=== PATIENT | female | born 1925 | race Caucasian/White ===

== ENCOUNTER 2016-10-19 13:03 | Emergency (ER) | payer MEDICARE ==
[2016-10-19 14:44] VITALS: BP 163/79
--- NOTE | 2016-10-19 15:18 | UC ---
Respiratory Complaint HPI - HPI Summary HPI Summary: pt c/o cough, nasal congestion X 10 days. - History of Current Complaint Chief Complaint: UCRespiratory Stated Complaint: CONGESTION Time Seen by Provider: 10/19/16 15:09 Hx Obtained From: Patient ?: No Onset/Duration: Sudden Onset, Lasting Days - 10 days Timing: Constant Severity Initially: Mild Severity Currently: Mild Character: Cough: Nonproductive Aggravating Factors: Deep Breaths, Recumbent Position Alleviating Factors: Nothing Associated Signs And Symptoms: Positive: URI, Nasal Congestion - Risk Factors Pulmonary Embolism Risk Factors: Recent Travel Cardiac Risk Factors: Hypertension Pseudomonas Risk Factors: Negative Tuberculosis Risk Factors: Negative - Allergies/Home Medications Allergies/Adverse Reactions: Allergies Allergy/AdvReac Type Severity Reaction Status Date / Time No Known Allergies Allergy Verified 10/19/16 14:36 Home Medications: Home Medications Aspirin [Aspirin Adult Low Dose] 81 mg PO DAILY 10/19/16 [History Confirmed 09/23] PMH/Surg Hx/FS Hx/Imm Hx Previously Healthy: Yes Cardiovascular History Of: 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 2006 right knee replaced - Family History Known Family History: Positive: Cardiac Disease - Social History Lives: With Family Alcohol Use: Daily Alcohol Amount: wine daily Substance Use Type: None Smoking Status (MU): Never Smoked Tobacco - Immunization History Most Recent Influenza Vaccination: 2015 Most Recent Tetanus Shot: 06/2012 Review of Systems Constitutional: Fatigue Skin: Negative Eyes: Negative ENT: Negative Respiratory: Cough Cardiovascular: Negative Gastrointestinal: Negative Genitourinary: Negative Motor: Negative Neurovascular: Negative Musculoskeletal: Negative Neurological: Negative Psychological: Negative All Other Systems Reviewed And Are Negative: Yes Physical Exam Triage Information Reviewed: Yes Appearance: Well-Appearing Vital Signs: Initial Vital Signs Temp 97.6 F 10/19/16 14:40 Pulse 67 10/19/16 14:40 Resp 20 10/19/16 14:40 BP 163/79 10/19/16 14:40 Pulse Ox 100 10/19/16 14:40 Vital Signs Reviewed: Yes ENT Exam: Other ENT: Positive: Nasal congestion Neck exam: Normal Respiratory Exam: Normal Cardiovascular Exam: Normal Musculoskeletal Exam: Normal Neurological Exam: Normal Psychological Exam: Normal Skin Exam: Normal UC Diagnostic Evaluation - Laboratory O2 Sat by Pulse Oximetry: 100 Respiratory Course/Dx - Differential Dx/Diagnosis Differential Diagnosis/HQI/PQRI: Bronchitis, Sinusitis Provider Diagnoses: Bronchitis Discharge - Discharge Plan Condition: Stable Disposition: HOME Prescriptions: Amoxicillin CAP* 500 mg PO Q12H #14 cap Benzonatate CAP* [Tessalon CAP*] 100 mg PO TID PRN #21 cap PRN Reason: Cough Patient Education Materials: Acute Bronchitis (ED) Referrals: Kirby Arauz MD [Primary Care Provider] -
== END 2016-10-19 15:25 | disposition home or self-care (01) ==
LOC: UCCORT 13:03
DX: J40 Bronchitis, not specified as acute or chronic (principal)
CPT/HCPCS: 99212; G0463

== ENCOUNTER 2017-02-03 12:14 | Emergency (ER) | payer MEDICARE ==
[2017-02-03 13:29] VITALS: BP 144/79
--- NOTE | 2017-02-03 14:36 | UC ---
Respiratory Complaint HPI - HPI Summary HPI Summary: pt c/o of cough that is worse at night and began 3 days ago. Pt denies fever, chills of SOB. - History of Current Complaint Chief Complaint: UCGeneralIllness Stated Complaint: COUGH Time Seen by Provider: 02/03/17 14:15 Hx Obtained From: Patient ?: No Onset/Duration: Sudden Onset, Lasting Days Timing: Constant Severity Initially: Mild Severity Currently: Mild Character: Cough: Nonproductive Aggravating Factors: Recumbent Position Associated Signs And Symptoms: Positive: Nasal Congestion - Risk Factors Pulmonary Embolism Risk Factors: Negative - Allergies/Home Medications Allergies/Adverse Reactions: Allergies Allergy/AdvReac Type Severity Reaction Status Date / Time No Known Allergies Allergy Verified 02/03/17 13:30 Home Medications: Home Medications Krill Oil [[place]-3 Krill Oil 500 mg] 1 cap PO DAILY 02/03/17 [History Confirmed 02/03/17] PMH/Surg Hx/FS Hx/Imm Hx Previously Healthy: Yes Cardiovascular History Of: 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 2006 right knee replaced. 1973-hysterectomy - Family History Known Family History: Positive: Cardiac Disease - Social History Alcohol Use: Daily Alcohol Amount: wine daily Substance Use Type: None Smoking Status (MU): Never Smoked Tobacco - Immunization History Most Recent Influenza Vaccination: 2015 Most Recent Tetanus Shot: 06/2012 Review of Systems Constitutional: Negative Skin: Negative Eyes: Negative ENT: Other - PND, nasal congestion Respiratory: Cough Cardiovascular: Negative Gastrointestinal: Negative Genitourinary: Negative Motor: Negative Neurovascular: Negative Musculoskeletal: Negative Neurological: Negative Psychological: Negative All Other Systems Reviewed And Are Negative: Yes Physical Exam Triage Information Reviewed: Yes Appearance: Well-Appearing Vital Signs: Initial Vital Signs Temp 98.2 F 02/03/17 13:20 Pulse 78 02/03/17 13:20 Resp 24 02/03/17 13:20 BP 144/79 02/03/17 13:20 Pulse Ox 97 02/03/17 13:20 Eye Exam: Normal ENT Exam: Other - pt has hearing aids in, denies ear pain. ENT: Positive: Pharynx normal, Nasal congestion Neck exam: Normal Respiratory Exam: Normal Cardiovascular Exam: Normal Musculoskeletal Exam: Normal Neurological Exam: Normal Psychological Exam: Normal Skin Exam: Normal Diagnostic Evaluation - Laboratory O2 Sat by Pulse Oximetry: 97 Respiratory Course/Dx - Differential Dx/Diagnosis Differential Diagnosis/HQI/PQRI: Influenza, Other - URI Provider Diagnoses: allergic rhinitis. cough Discharge - Discharge Plan Condition: Stable Disposition: HOME Prescriptions: Loratadine [Claritin 10 MG CAP] 10 mg PO DAILY #15 cap Patient Education Materials: Allergic Rhinitis (ED), Acute Cough (ED) Referrals: Kirby Arauz MD [Primary Care Provider] - If Needed Additional Instructions: Please follow up with your PCP or return to clinic as needed.
== END 2017-02-03 14:55 | disposition home or self-care (01) ==
LOC: UCCORT 12:14
DX: J30.9 Allergic rhinitis, unspecified (principal); R05 Cough; I20.1 Angina pectoris with documented spasm; Z96.651 Presence of right artificial knee joint; Z90.710 Acquired absence of both cervix and uterus
CPT/HCPCS: 99212; G0463

== ENCOUNTER 2017-02-05 09:38 | Emergency (ER) | payer MEDICARE ==
[2017-02-05 10:04] VITALS: BP 132/67
--- NOTE | 2017-02-05 10:16 | UC ---
Respiratory Complaint HPI - HPI Summary HPI Summary: cough x 5 days, + nasal congestion , no sore throat, no fever, no chills, - History of Current Complaint Chief Complaint: UCRespiratory Stated Complaint: RECHECK COUGH CONGESTION Time Seen by Provider: 02/05/17 09:55 Hx Obtained From: Patient Onset/Duration: Gradual Onset, Lasting Days - 5, Still Present Timing: Constant Severity Initially: Moderate Severity Currently: Moderate Character: Cough: Nonproductive Aggravating Factors: Exertion, Deep Breaths Alleviating Factors: Nothing Associated Signs And Symptoms: Positive: URI, Nasal Congestion. 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 2006 right knee replaced. 1973-hysterectomy - Family History Known Family History: Positive: Cardiac Disease Negative: Diabetes - Social History Alcohol Use: Daily Alcohol Amount: wine daily Substance Use Type: None Smoking Status (MU): Never Smoked Tobacco - Immunization History Most Recent Influenza Vaccination: 2015 Most Recent Tetanus Shot: 06/2012 Review of Systems Constitutional: Negative Skin: Negative Eyes: Negative ENT: Nasal Discharge Respiratory: Cough Cardiovascular: Negative Gastrointestinal: Negative Genitourinary: Negative All Other Systems Reviewed And Are Negative: Yes Physical Exam Triage Information Reviewed: Yes Appearance: Well-Appearing, No Pain Distress, Well-Nourished Vital Signs: Initial Vital Signs Temp 97.8 F 02/05/17 09:55 Pulse 77 02/05/17 09:55 Resp 18 02/05/17 09:55 BP 132/67 02/05/17 09:55 Pulse Ox 97 02/05/17 09:55 Vital Signs Reviewed: Yes Eyes: Positive: Conjunctiva Clear ENT: Positive: Normal ENT inspection, Hearing grossly normal, Pharynx normal Neck: Positive: Supple, Nontender, No Lymphadenopathy Respiratory: Positive: Chest non-tender, Lungs clear, Normal breath sounds Cardiovascular: Positive: RRR, No Murmur, Pulses Normal UC Diagnostic Evaluation - Laboratory O2 Sat by Pulse Oximetry: 97 Respiratory Course/Dx - Differential Dx/Diagnosis Provider Diagnoses: viral bronchitis Discharge - Discharge Plan Condition: Stable Disposition: HOME Prescriptions: Guaifenesin-Codeine [Cheratussin AC] 10 ml PO Q8H PRN #120 ml MDD 30 ml PRN Reason: Cough Patient Education Materials: Acute Bronchitis (ED) Referrals: Kirby Arauz MD [Primary Care Provider] - 7 Days
== END 2017-02-05 10:21 | disposition home or self-care (01) ==
LOC: UCCORT 09:38
DX: J20.8 Acute bronchitis due to other specified organisms (principal); I20.1 Angina pectoris with documented spasm; Z96.651 Presence of right artificial knee joint; Z90.710 Acquired absence of both cervix and uterus
CPT/HCPCS: 99212; G0463